=== PATIENT | male | born 1965 | race Caucasian/White ===

== ENCOUNTER 2019-01-26 18:03 | Emergency (ER) | payer MEDICAID, SELFPAY ==
[2019-01-26] VITALS (17 sets, daily range): BP systolic 153–170; BP diastolic 86–98; PULSE 64–78; RESP 18–32; O2SAT 80–99
--- NOTE | 2019-01-26 18:13 | DI.RAD_ITS ---
EXAM: XR ANKLE LT COMPLETE CLINICAL HISTORY: s/p fall off ladder,deformity, assess extent of fx TECHNIQUE: 2D digital imaging was performed. COMPARISON: No exams were available for comparison FINDINGS: BONES: There is a comminuted fracture involving the calcaneus. The fracture involves both the anteri or and posterior aspect of the calcaneus. There is loss of the normal Boehler's angle. The fracture appears to involve the subtalar joint and the posterior talocalcaneal joint. No other fracture is i dentified. No bony destructive lesion is seen. JOINTS:The ankle mortise is normally aligned. SOFT TISSUE: There is marked soft tissue swelling about the ankle and hindfoot. IMPRESSION: Markedly comminuted fracture involving the left calcaneus as described above. CT scan of the heel sh ould be considered for further characterization. Complete
--- NOTE | 2019-01-26 18:13 | DI.RAD_ITS ---
EXAM: XR WRIST RT COMPLETE CLINICAL HISTORY: s/p fall, r/o acute fracture. TECHNIQUE: 2D digital imaging was performed. COMPARISON: No exams were available for comparison FINDINGS: BONES: There is a comminuted fracture of the distal pole of the scaphoid. There is mild displacement of the radial aspect of the fracture. No other fracture location is identified. JOINTS: The carpal bones are normally aligned. SOFT TISSUE: There is soft tissue swelling about the wrist. IMPRESSION: Comminuted mildly displaced fracture of the distal scaphoid.
--- NOTE | 2019-01-26 18:13 | DI.CT_ITS ---
EXAM: CT HEAD CERV SPINE FACIAL WO CLINICAL HISTORY: s/p fall onto face, hematoma L cheek. TECHNIQUE: Multiple contiguous axial images of the head face and cervical spine were obtained. COMPARISON: No exams were available for comparison FINDINGS: There is normal lin-white matter differentiation. No acute intracranial hemorrhage is present. The re is no acute midline shift or mass effect. There is no evidence of a calvarial fracture. The mast oid air cells are well pneumatized. Mucous retention cysts or polyps are seen in the maxillary sinus es bilaterally. Remaining visualized paranasal sinuses are clear. There is soft tissue material see n in the external auditory canals bilaterally likely cerumen. There is no evidence of a facial fracture. Orbits and retro-orbital soft tissues are unremarkable. There is a hematoma overlying the left maxillary bone. There is mild left periorbital soft tissue sw elling. No acute fracture or subluxation is seen in the cervical spine. There reversal of the normal cervica l lordosis which appears chronic. There degenerative changes within the cervical spine. There is no prevertebral soft tissue swelling. IMPRESSION: No acute intracranial process. No evidence of a facial fracture. No acute fracture or subluxation is seen in the cervical spine. Complete
--- NOTE | 2019-01-26 18:16 | ED.GENADUL_ITS ---
Discharge Plan Disposition Patient Disposition: [facility] Condition: Stable Discharge Details Chief Complaint: Trauma Clinical Impression: Calcaneus fracture, left, Fracture of scaphoid bone of right wrist, Compression fx, lumbar spine, Central stenosis of spinal canal, Traumatic hematoma of face, Facial laceration Primary Care Provider: Elly Reese ED Provider: Marie Benitez Discharge Data Discharge Date/Time-TO BE ENTERED AT DEPARTURE: 01/26/19 20:57 Medical Decision Making 53-year-old male with history of hep C and hypertension presents after fall down 12 feet off a ladder onto his left foot and left facial cheek. Also hit his right wrist. No LOC. No complaint of chest or abdominal pain. He has a left facial hematoma and left upper face/temporal laceration without extension into the eye. He has a left ankle/calcaneus bony deformity but no open wound. He has right wrist scaphoid tenderness but no open deformity. Lungs clear to auscultation. Abdomen soft nontender. No tenderness to midline C/T/L-spine. Moving both arms and right leg. Bilateral upper extremities and lower extremities distal pulses intact. Unknown tetanus status. Will give a Boostrix. Will send for CT head/facial/c ervical spine/chest/abdomen/pelvis/thoracic and lumbar spine. Labs reviewed and unremarkable. Troponin negative. Lipase mildly elevated at 487. CT imaging notes a left facial hematoma but no evidence of skull or cervical fracture. Chest and abdominal imaging negative. No thoracic fracture noted. There is an L4 vertebral body compression fracture with anterior epidural hematoma which produces mild central canal stenosis. A left foot x-ray noted a comminuted and questionable dislocated calcaneus fracture. A CT of the left foot confirmed a comminuted calcaneus fracture which was reviewed with Dr. Toro. A right wrist x-ray noted a distal pole scaphoid fracture. Case discussed with Ortho on-call Dr. Toro - would recommend transfer to [facility] for further management due to possibly needing neurosurgery for monitoring of lumbar epidural hematoma. Recommends a bulky Masters padded splint to the left lower extremity as well as a Velcro right thumb spica splint. Family members now in room he states that patient possibly fell 70 feet from top of barn. Patient and EMS had initially stated fall was from 12 feet. 2004 --discussed with trauma Dr. Maravilla - who accepts pt for transfer to the ED as a trauma alert. She is in agreement with planned splints at this time. Medical Records Medical records reviewed: Yes I reviewed the patient's medical records. Imaging Data Radiologic Study: Radiologist's impression: XR WRIST RT COMPLETE CLINICAL HISTORY: s/p fall, r/o acute fracture. TECHNIQUE: 2D digital imaging was performed. COMPARISON: No exams were available for comparison FINDINGS: BONES: There is a comminuted fracture of the distal pole of the scaphoid. There is mild displacement of the radial aspect of the fracture. No other fracture location is identified. JOINTS: The carpal bones are normally aligned. SOFT TISSUE: There is soft tissue swelling about the wrist. IMPRESSION: Comminuted mildly displaced fracture of the distal scaphoid. XR ankle LT complete EXAM: XR ANKLE LT COMPLETE CLINICAL HISTORY: s/p fall off ladder,deformity, assess extent of fx TECHNIQUE: 2D digital imaging was performed. COMPARISON: No exams were available for comparison FINDINGS: BONES: There is a comminuted fracture involving the calcaneus. The fracture involves both the anterior and posterior aspect of the calcaneus. There is loss of the normal Boehler's angle. The fracture appears to involve the subtalar joint and the posterior talocalcaneal joint. No other fracture is identified. No bony destructive lesion is seen. JOINTS:The ankle mortise is normally aligned. SOFT TISSUE: There is marked soft tissue swelling about the ankle and hindfoot. IMPRESSION: Markedly comminuted fracture involving the left calcaneus as described above. CT scan of the heel should be considered for further characterization. CT thoracic & lumbar spine wo EXAM: CT CHEST/ABD/PEL W CLINICAL HISTORY: s/p fall off ladder down 12 ft. TECHNIQUE: Imaging Protocol: Axial computed tomography images with coronal and sagittal reformatted images were created and reviewed. Computed tomographic images of the thoracic and lumbar spine without contrast were created and reviewed. CONTRAST MATERIAL: Intravenous: Omnipaque 350 Contrast volume:100 mL contrast route:IV - Oral: No COMPARISON: No exams were available for comparison FINDINGS: CHEST: Tracheobronchial tree: Patent where visualized. Mediastinum and Sveta: No dominant adenopathy or fluid collection. Pulmonary parenchyma: There are dependent atelectatic changes in the lungs. Bilateral apical blebs are present. Heart: No cardiomegaly. No pericardial effusion. Pleura: No effusion or pneumothorax. Aorta: No evidence of thoracic aortic dissection or aneurysm. Bones: No acute fracture or subluxation is seen in the thoracic spine. There is a T5 round whole-body lesion present. ABDOMEN: Liver: The liver has a nodular appearance within the enlarged left lobe consistent with hepatic cirrhosis. No hepatic mass or laceration is present. The portal, superior mesenteric, and splenic veins are patent. Gallbladder and biliary tract: No radiodense calculus or dilation. Pancreas: Normal density, no abnormal calcifications or inflammatory process. Spleen: Normal. Kidneys: Normal size, contour and axis. There is a 2 mm nonobstructing stone in the lower pole of the left kidney. No solid renal mass or laceration is present. No evidence of obstructive uropathy is present. Adrenal glands: No masses seen. Aorta: There is atherosclerosis of the abdominal aorta. No evidence of abdominal aortic aneurysm. There are mildly enlarged lymph nodes seen in the a bdomen. Varices are seen in the upper abdomen. PELVIS: Bladder: The urinary bladder is intact. The reproductive organs are unremarkable. Bowel: No obstruction or bowel wall thickening. There is a normal retrocecal appendix. Peritoneal cavity: No ascites, collection or mesenteric inflammatory response. Bones: There is an acute mild fracture of the L4 vertebral body. Shows mild compression. There is an associated small anterior epidural hematoma measuring approximately 4.5 mm. It does produce mild of the central spinal canal. There is posterior fusion at L5-S1 IMPRESSION: 1. Acute mild compression of the L4 vertebral body. Associated small anterior epidural hematoma produces mild central spinal stenosis. 2. No evidence of abdominal or pelvic organ injury. 3. No acute pulmonary process. 4. T5 vertebral body lesion. This may represent a benign lesion such as a hemangioma. Further evaluation with MRI or bone scan is recommended. 5. Findings consistent with cirrhotic liver. CT head cerv spine & facial wo EXAM: CT HEAD CERV SPINE FACIAL WO CLINICAL HISTORY: s/p fall onto face, hematoma L cheek. TECHNIQUE: Multiple contiguous axial images of the head face and cervical spine were obtained. COMPARISON: No exams were available for comparison FINDINGS: There is normal lin-white matter differentiation. No acute intracranial hemorrhage is present. There is no acute midline shift or mass effect. There is no evidence of a calvarial fracture. The mastoid air cells are well pneumatized. Mucous retention cysts or polyps are seen in the maxillary sinuses bilaterally. Remaining visualized paranasal sinuses are clear. There is soft t issue material seen in the external auditory canals bilaterally likely cerumen. There is no evidence of a facial fracture. Orbits and retro-orbital soft tissues are unremarkable. There is a hematoma overlying the left maxillary bone. There is mild left periorbital soft tissue swelling. No acute fracture or subluxation is seen in the cervical spine. There reversal of the normal cervical lordosis which appears chronic. There degenerative changes within the cervical spine. There is no prevertebral soft tissue swelling. IMPRESSION: No acute intracranial process. No evidence of a facial fracture. No acute fracture or subluxation is seen in the cervical spine. CT chest/abd/pel w EXAM: CT CHEST/ABD/PEL W CLINICAL HISTORY: s/p fall off ladder down 12 ft. TECHNIQUE: Imaging Protocol: Axial computed tomography images with coronal and sagittal reformatted images were created and reviewed. Computed tomographic images of the thoracic and lumbar spine without contrast were created and reviewed. CONTRAST MATERIAL: Intravenous: Omnipaque 350 Contrast volume:100 mL contrast route:IV - Oral: No COMPARISON: No exams were available for comparison FINDINGS: CHEST: Tracheobronchial tree: Patent where visualized. Mediastinum and Sveta: No dominant adenopathy or fluid collection. Pulmonary parenchyma: There are dependent atelectatic changes in the lungs. Bilateral apical blebs are present. Heart: No cardiomegaly. No pericardial effusion. Pleura: No effusion or pneumothorax. Aorta: No evidence of thoracic aortic dissection or aneurysm. Bones: No acute fracture or subluxation is seen in the thoracic spine. There is a T5 round whole-body lesion present. ABDOMEN: Liver: The liver has a nodular appearance within the enlarged left lobe consistent with hepatic cirrhosis. No hepatic mass or laceration is present. The portal, superior mesenteric, and splenic veins are patent. Gallbladder and biliary tract: No radiodense calculus or dilation. Pancreas: Normal density, no abnormal calcifications or inflammatory process. Spleen: Normal. Kidneys: Normal size, contour and axis. There is a 2 mm nonobstructing stone in the lower pole of the left kidney. No solid renal mass or laceration is present. No evidence of obstructive uropathy is present. Adrenal glands: No masses seen. Aorta: There is atherosclerosis of the abdominal aorta. No evidence of abdominal aortic aneurysm. There are mildly enlarged lymph nodes seen in the abdomen. Varices are seen in the upper abdomen. PELVIS: Bladder: The urinary bladder is intact. The reproductive organs are unremarkable. Bowel: No obstruction or bowel wall thickening. There is a normal retrocecal appendix. Peritoneal cavity: No ascites, collection or mesenteric inflammatory response. Bones: There is an acute mild fracture of the L4 vertebral body. Shows mild compression. There is an associated small anterior epidural hematoma measuring approximately 4.5 mm. It does produce mild of the central spinal canal. There is posterior fusion at L5-S1 IMPRESSION: 1. Acute mild compression of the L4 vertebral body. Associated small anterior epidural hematoma produces mild central spinal stenosis. 2. No evidence of abdominal or pelvic organ injury. 3. No acute pulmonary process. 4. T5 vertebral body lesion. This may represent a benign lesion such as a hemangioma. Further evaluation with MRI or bone scan is recommended. 5. Findings consistent with cirrhotic liver. CT LOWER EXTREMITY LT WO CLINICAL HISTORY: s/p fall off ladder, assess extent of fx. TECHNIQUE: Multiple contiguous axial images through the hindfoot were performed. Sagittal and coronal reformatted images were performed. COMPARISON: XR ANKLE LT COMPLETE from 01/26/2019 FINDINGS: There is a markedly comminuted fracture involving the entire calcaneus. There is depression of the central portion of the calcaneus. This affects the subtalar joint and the posterior talocalcaneal joint. The fracture extends into the calcaneocuboid joint. There is marked soft tissue swelling about the hindfoot. There does appear to be a large hematoma medially measuring approximately 6 cm x 2 cm x 10 cm. IMPRESSION: Markedly comminuted fracture involving the calcaneus as described above. Lab Data Lab results reviewed: Yes I reviewed the patient's lab results. Labs: Laboratory Tests Range/Units 01/26/19 01/26/19 18:10 18:10 WBC (4.4-10.8) k/cumm 7.77 RBC (4.50-6.00) m/cumm 4.65 Hgb (13.5-17.5) g/dL 15.3 Hct (40.0-50.0) % 43.7 MCV (80-95) fL 94.0 MCH (27.0-33.0) pg 32.9 MCHC (32.0-36.0) g/dL 35.0 RDW (11.8-14.1) % 13.0 Plt Count (130-400) x1000/uL 154 MPV (8.0-11.0) fL 10.7 Immature Gran % 0.6 Neutrophils % 56.4 Lymphocytes % 28.6 Monocytes % 11.8 Eosinophils % 2.2 Basophils % 0.4 Absolute Neutrophils (1.2-6.7) k/cumm 4.38 Absolute Lymphocytes (1.2-3.4) k/cumm 2.22 Absolute Monocytes (0.11-0.7) k/cumm 0.92 H Absolute Eosinophils (0.0-0.7) k/cumm 0.17 Absolute Basophils (0.0-0.2) k/cumm 0.03 Sodium (136-145) mmol/L 140 Potassium (3.5-5.1) mmol/L 3.9 Chloride (98-107) mmol/L 103 Carbon Dioxide (21.0-32.0) mmol/L 26.2 Anion Gap (3-11) mmol/L 10.8 BUN (7-18) mg/dL 13 Creatinine (0.70-1.30) mg/dL 1.16 Estimated GFR/1.73 m2 (mL/min/1.73m2) >= 60.00 Glucose (70-100) mg/dL 105 H Calcium (8.5-10.1) mg/dL 8.9 Magnesium (1.8-2.4) mg/dL 1.9 Total Bilirubin (0.2-1.0) mg/dL 0.9 AST (15-37) U/L 72 H ALT (16-63) U/L 144 H Alkaline Phosphatase (46-116) U/L 79 Troponin I (0.00-0.06) ng/mL < 0.05 Total Protein (6.4-8.2) g/dL 8.1 Albumin (3.4-5.0) g/dL 4.3 Lipase (73-393) U/L 487 H HPI General Mode of arrival: EMS . Date/Time Provider Initiated Documentation: 01/26/19 18:13 . Limitations to Documentation: no limitations . Information obtained by: patient . HPI Narrative: Patient is a 53-year-old male with a history of hypertension and hep C who presents with left foot and ankle pain, right wrist pain and left facial injury after fall down 12 feet from a ladder just prior to arrival. Patient denies any alcohol or drug use. No report of LOC. Patient denies any neck pain, back pain, chest or abdominal pain. He was given 300 mcg of fentanyl in route without relief. Related Data Allergies Allergy/AdvReac Type Severity Reaction Status Date / Time No Known Allergies Allergy Unverified 01/26/19 18:05 General Stated Complaint: Trauma JOSE R: 2 Review of Systems Review of Systems ROS Unobtainable: All systems reviewed & are unremarkable except as noted in HPI and below Constitutional Constitutional: Reports as per HPI, Denies chills and Denies fever(s) Eyes Eyes: Denies blurry vision ENT Ears, Nose, Mouth, and Throat: Denies dizziness, Denies sore throat and Denies throat swelling Cardiovascular Cardiovascular: Denies chest pain and Denies dyspnea Respiratory Respiratory: Denies cough and Denies dyspnea Gastrointestinal Gastrointestinal: Denies abdominal pain, Denies diarrhea and Denies vomiting Genitourinary Genitourinary: Denies hematuria and Denies dysuria Musculoskeletal Musculoskeletal: Denies back pain and Denies numbness Comments: L foot/ankle pain. R wrist pain Integumentary/Breasts Skin/Breast: Denies lesions and Denies rash Neurologic Neurologic: Denies dizziness, Denies focal weakness and Denies numbness Allergic/Immunologic Allergic/Immunologic: Denies throat swelling [facility] Medical History Back pain with history of spinal surgery (Acute) Cervical spine fracture (Acute) Hypercholesteremia (Acute) Hypertension (Chronic) Migraine (Chronic) Social History Smoking/Tobacco Use Status: Current every day Tobacco Type: cigarettes Alcohol Intake: current Alcohol Intake frequency: holidays/special occasions only Substance use type: does not use Do you feel safe at home: Yes Do you feel safe in your relationship?: Yes Exam Const General: cooperative and healthy appearing Orientation: alert and awake [facility] Head: normal to inspection Ears: hearing grossly normal bilaterally, external ears normal and TM's normal bilaterally General nose exam: external nose normal Face images: 1. 2 cm laceration upper left facial cheek. 2. Moderate L facial hematoma. Mouth: oral mucosae normal Teeth and gingiva: dentures Throat: posterior oropharynx normal Eyes General: appearance normal, both eyes and all related structures Eyelids: eyelids normal Pupils: PERRL EOM: EOM intact bilaterally Neck Neck: normal visual inspection Lymphatic: no lymphadenopathy noted Chest Chest: normal inspection of the chest, normal palpation of entire chest wall and no tenderness Resp Effort & Inspection: normal respiratory effort and able to speak in complete sentences Auscultation: clear to auscultation bilaterally Cardio Rate: regular rate Rhythm: regular rhythm GI Inspection: normal to inspection Palpation: soft, not firm, no guarding, no hepatosplenomegaly, no masses and nontender Auscultation: normal bowel sounds Back/Spine/Pelvis Back: no CVA tenderness Cervical Spine: No cervical spinal tenderness Thoracic/Lumbar Spine: No thoracic spinal tenderness and No lumbar spinal tenderness Pelvis: no pain with anterior-posterior compression and no pain with lateral compression Skin General skin exam: no rashes or lesions noted Neuro General: alert and awake Cognition: normal cognition Speech: speech normal Gait: normal gait Motor: muscle tone normal throughout Sensory Exam: no sensory deficits noted Extrem Other: Tenderness to palpation R dorsal wrist and R scaphoid. No R wrist deformity. B/l radial pulses intact. L foot/ankle bony deformity. B/L DP/PT pulses intact. No tenderness to palpation b/l knees, right ankle foot, left upper extremity, right shoulder or elbow. Psych Appearance: grossly normal Mental Status: mental status grossly normal Speech and Movement: speech and movement normal Affect: normal affect Thought Process: normal Course Vital Signs Vital signs: Vital Signs Pulse 66 01/26/19 18:03 Respiratory Rate 18 01/26/19 18:03 Pulse 66 01/26/19 18:03 Respiratory Rate 18 01/26/19 18:03 Respiratory Effort 01/26/19 18:11 Comment 01/26/19 18:03
[2019-01-26 18:25] LABS: Abs Immature Grans 0.05 k/cumm (0.0-0.09); Absolute Basophil Count 0.03 k/cumm (0.0-0.2); Absolute Eosinophil Count 0.17 k/cumm (0.0-0.7); Absolute Lymphocyte Count 2.22 k/cumm (1.2-3.4); Absolute Monocyte Count 0.92 k/cumm (0.11-0.7); Absolute Neutrophil Count 4.38 k/cumm (1.2-6.7); Basophils % 0.4; Eosinophils % 2.2; HCT 43.7 % (40.0-50.0); HGB 15.3 g/dL (13.5-17.5); Immature Grans % 0.6; Lymphocytes % 28.6; Mean Corpuscular Hemoglobin 32.9 pg (27.0-33.0); Mean Platelet Volume 10.7 fL (8.0-11.0); Monocytes % 11.8; Neutrophils % 56.4; Platelet Count 154 x1000/uL (130-400); RBC 4.65 m/cumm (4.50-6.00); White Blood Cell Count 7.77 k/cumm (4.4-10.8)
[2019-01-26 18:42] LABS: ALT 144 U/L (16-63); AST 72 U/L (15-37); Albumin 4.3 g/dL (3.4-5.0); Alkaline Phosphatase 79 U/L (46-116); Anion Gap 10.8 mmol/L (3-11); BUN 13 mg/dL (7-18); Bilirubin, Total 0.9 mg/dL (0.2-1.0); CO2 26.2 mmol/L (21.0-32.0); CREATININE 1.16 mg/dL (0.70-1.30); Calcium 8.9 mg/dL (8.5-10.1); Chloride 103 mmol/L (98-107); Glucose 105 mg/dL (70-100); Lipase 487 U/L (73-393); Magnesium 1.9 mg/dL (1.8-2.4); Potassium 3.9 mmol/L (3.5-5.1); Sodium 140 mmol/L (136-145); Total Protein 8.1 g/dL (6.4-8.2); Troponin I < 0.05 ng/mL (0.00-0.06)
[2019-01-26] MEDS: Normal Saline Flush 10 ML SYR IVP (19:11)
[2019-01-26] MEDS: Omnipaque 350 MG/ML 100 ML BTL IJ (19:11)
--- NOTE | 2019-01-26 19:12 | DI.CT_ITS ---
EXAM: CT CHEST/ABD/PEL W CLINICAL HISTORY: s/p fall off ladder down 12 ft. TECHNIQUE: Imaging Protocol: Axial computed tomography images with coronal and sagittal reformatted images were created and reviewed. Computed tomographic images of the thoracic and lumbar spine witho ut contrast were created and reviewed. CONTRAST MATERIAL: Intravenous: Omnipaque 350 Contrast volume:100 mL contrast route:IV - Oral: No COMPARISON: No exams were available for comparison FINDINGS: CHEST: Tracheobronchial tree: Patent where visualized. Mediastinum and Sveta: No dominant adenopathy or fluid collection. Pulmonary parenchyma: There are dependent atelectatic changes in the lungs. Bilateral apical blebs a re present. Heart: No cardiomegaly. No pericardial effusion. Pleura: No effusion or pneumothorax. Aorta: No evidence of thoracic aortic dissection or aneurysm. Bones: No acute fracture or subluxation is seen in the thoracic spine. There is a T5 round whole-bod y lesion present. ABDOMEN: Liver: The liver has a nodular appearance within the enlarged left lobe consistent with hepatic cirrh osis. No hepatic mass or laceration is present. The portal, superior mesenteric, and splenic veins are patent. Gallbladder and biliary tract: No radiodense calculus or dilation. Pancreas: Normal density, no abnormal calcifications or inflammatory process. Spleen: Normal. Kidneys: Normal size, contour and axis. There is a 2 mm nonobstructing stone in the lower pole of the left kidney. No solid renal mass or laceration is present. No evidence of obstructive uropathy is present. Adrenal glands: No masses seen. Aorta: There is atherosclerosis of the abdominal aorta. No evidence of abdominal aortic aneurysm. T here are mildly enlarged lymph nodes seen in the abdomen. Varices are seen in the upper abdomen. PELVIS: Bladder: The urinary bladder is intact. The reproductive organs are unremarkable. Bowel: No obstruction or bowel wall thickening. There is a normal retrocecal appendix. Peritoneal cavity: No ascites, collection or mesenteric inflammatory response. Bones: There is an acute mild fracture of the L4 vertebral body. Shows mild compression. There is a n associated small anterior epidural hematoma measuring approximately 4.5 mm. It does produce mild o f the central spinal canal. There is posterior fusion at L5-S1 IMPRESSION: 1. Acute mild compression of the L4 vertebral body. Associated small anterior epidural hematoma pro duces mild central spinal stenosis. 2. No evidence of abdominal or pelvic organ injury. 3. No acute pulmonary process. 4. T5 vertebral body lesion. This may represent a benign lesion such as a hemangioma. Further evalu ation with MRI or bone scan is recommended. 5. Findings consistent with cirrhotic liver. DATA REPOSITORY: All CT scans at this facility are submitted to the National Radiology Data Registry (NRDR) Dose Index Registry (DIR) with the [employer] (A[employer]). RADIATION OPTIMIZATION: All CT scans at this facility use at least one of these dose optimization te chniques: automated exposure control; mA and/or kV adjustment per patient size (includes targeted exa ms where dose is matched to clinical indication); or iterative reconstruction.
--- NOTE | 2019-01-26 19:18 | DI.VRAD_ITS ---
PROCEDURE INFORMATION: Exam: XR Left Ankle Exam date and time: 01/26/2019 6:54 PM Clinical history: 53 years old, male; Pain; Swelling or effusion of joint; Ankle; Left; Patient HX: S/P fall off ladder, deformity; Additional info: Assess extent of FX TECHNIQUE: Imaging protocol: XR Left ankle. Views: 3 or more views. COMPARISON: No relevant prior studies available. FINDINGS: Bones/joints: The ankle mortise is slightly widened laterally compared to medially. There is prominent for many of the mid and anterior calcaneus. The tail S. appears to have dislocated anteriorly with respect to the calcaneus. There is no identifiable fracture of the distal fibula tibia or navicular. There is no obvious fracture of the tail as itself. Soft tissues: Severe diffuse swelling at the ankle and adjacent hindfoot. There is no radiopaque foreign body.There is no gas in the soft tissue. IMPRESSION: Unusual dislocation at the subtalar joint associated with what appears to be a comminuted fracture of the anterior and mid calcaneus. CT of the ankle is suggested to to evaluate the deformity further. Dictated and Authenticated by: Nikko Cruz MD. Ordering:CHRISTO Salazar MD
--- NOTE | 2019-01-26 19:20 | DI.CT_ITS ---
EXAM: CT LOWER EXTREMITY LT WO CLINICAL HISTORY: s/p fall off ladder, assess extent of fx. TECHNIQUE: Multiple contiguous axial images through the hindfoot were performed. Sagittal and coron al reformatted images were performed. COMPARISON: XR ANKLE LT COMPLETE from 01/26/2019 FINDINGS: There is a markedly comminuted fracture involving the entire calcaneus. There is depression of the c entral portion of the calcaneus. This affects the subtalar joint and the posterior talocalcaneal yusuf nt. The fracture extends into the calcaneocuboid joint. There is marked soft tissue swelling about the hindfoot. There does appear to be a large hematoma me dially measuring approximately 6 cm x 2 cm x 10 cm. IMPRESSION: Markedly comminuted fracture involving the calcaneus as described above.
--- NOTE | 2019-01-26 19:21 | DI.VRAD_ITS ---
PROCEDURE INFORMATION: Exam: XR Right Wrist Exam date and time: 01/26/2019 6:54 PM Clinical history: 53 years old, male; Pain; Wrist; Right; Patient HX: S/P fall; Additional info: R/O acute fracture TECHNIQUE: Imaging protocol: XR Right wrist. Views: 3 or more views. COMPARISON: No relevant prior studies available. FINDINGS: Bones/joints: There is a 8 x 5 x 7 mm fracture fragment minimally displaced from the radial aspect of the distal scaphoid. Fracture appears to be comminuted with cortical irregularity of the distal scaphoid as well. No other fractures demonstrated. Soft tissues: There is no radiopaque foreign body.There is no gas in the soft tissue. IMPRESSION: Acute comminuted fracture of the distal scaphoid. Dictated and Authenticated by: Nikko Cruz MD. Ordering:CHRISTO Salazar MD
--- NOTE | 2019-01-26 19:24 | DI.VRAD_ITS ---
PROCEDURE INFORMATION: Exam: CT Head Without Contrast Exam date and time: 01/26/2019 6:26 PM Clinical history: 53 years old, male; Other: S/P fall off ladder down 12 ft; Other: S/P fall onto face, hematoma L cheek; Other: S/P fall onto face, hematoma L cheek TECHNIQUE: Imaging protocol: Computed tomography of the head without contrast. Radiation optimization: All CT scans at this facility use at least one of these dose optimization techniques: automated exposure control; mA and/or kV adjustment per patient size (includes targeted exams where dose is matched to clinical indication); or iterative reconstruction. COMPARISON: No relevant prior studies available. FINDINGS: Brain: Unremarkable. No hemorrhage. No significant white matter disease. No edema. Ventricles: Unremarkable. No hydrocephalus. Bones/joints: Unremarkable. No acute fracture. Sinuses: Mucous retention cysts or polyps in the maxillary sinuses. Minimal opacification scattered in the paranasal sinuses. No air-fluid levels. Mastoid air cells: Unremarkable as visualized. No mastoid effusion. Auditory system: Filling defects in both external auditory canals without associated fracture, bony erosion or periosteal reaction likely represents cerumen. Soft tissues: Left periorbital subcutaneous contusion. IMPRESSION: Negative for skull fracture or acute intracranial pathology. PROCEDURE INFORMATION: Exam: CT Maxillofacial Without Contrast Exam date and time: 01/26/2019 6:26 PM Clinical history: 53 years old, male; Other: S/P fall off ladder down 12 ft; Other: S/P fall onto face, hematoma L cheek; Other: S/P fall onto face, hematoma L cheek TECHNIQUE: Imaging protocol: Computed tomography images of the face without contrast. Radiation optimization: All CT scans at this facility use at least one of these dose optimization techniques: automated exposure control; mA and/or kV adjustment per patient size (includes targeted exams where dose is matched to clinical indication); or iterative reconstruction. COMPARISON: No relevant prior studies available. FINDINGS: Orbits: Globes, extraocular muscles and optic nerves are normal in size, shape and position. No retro-bulbar hematoma or mass. Sinuses: Mucous retention cysts or polyps in the maxillary sinuses. Minimal opacification scattered in the paranasal sinuses. No air-fluid levels. Bones/joints: Orbital grace, maxillary grace, zygomas, pterygoid plates, nasal bones, mandible and skull base are intact. Dental: Patient is edentulous. Soft tissues: Subcutaneous contusion and hematoma overlies the left maxilla. Left periorbital subcutaneous contusion. IMPRESSION: 1. Left facial subcutaneous hematoma and contusions. 2. No fracture or dislocation. PROCEDURE INFORMATION: Exam: CT Cervical Spine Without Contrast Exam date and time: 01/26/2019 6:26 PM Clinical history: 53 years old, male; Other: S/P fall off ladder down 12 ft; Other: S/P fall onto face, hematoma L cheek; Other: S/P fall onto face, hematoma L cheek TECHNIQUE: Imaging protocol: Computed tomography images of the cervical spine without contrast. Radiation optimization: All CT scans at this facility use at least one of these dose optimization techniques: automated exposure control; mA and/or kV adjustment per patient size (includes targeted exams where dose is matched to clinical indication); or iterative reconstruction. COMPARISON: No relevant prior studies available. FINDINGS: Vertebrae: No fracture or subluxation/dislocation. There is a smooth reversal of the normal cervical lordosis. Discs/Spinal canal/Neural foramina: C5-6 degenerative disc disease with endplate disc bulges, annular disc bulge, uncovertebral spurring and facet hypertrophy which produces moderate central canal stenosis. Soft tissues: Unremarkable. Lungs: No apical pneumothorax. Biapical scarring and bleb formation. IMPRESSION: 1. No fracture or dislocation. 2. Reversal of the normal cervical lordosis may be due to one or combination of: Positioning, muscle spasm and degenerative changes. 3. C5-6 degenerative changes produce moderate central canal stenosis. Dictated and Authenticated by: Marquita Hernandez MD. Ordering:CHRISTO Salazar MD
--- NOTE | 2019-01-26 19:42 | NUR.NOTE ---
1830- pt to ct with this at bedside to stabalize c spine Nursing Note:
--- NOTE | 2019-01-26 19:42 | NUR.NOTE ---
pt in room c collor remains in place vs on threat monitoring analyst family at bedside will cont to monitor pt Nursing Note:
[2019-01-26] MEDS: HYDROmorphone 2 MG/ML VIAL 1 MG IVP (19:59)
--- NOTE | 2019-01-26 19:59 | DI.VRAD_ITS ---
PROCEDURE INFORMATION: Exam: CT Thoracic Spine Without Contrast Exam date and time: 01/26/2019 7:04 PM Clinical history: 53 years old, male; Other: S/P fall off ladder, R/O acute fracture; Other: S/P fall off ladder, f/o acute fracture TECHNIQUE: Imaging protocol: Computed tomography images of the thoracic spine without contrast. Radiation optimization: All CT scans at this facility use at least one of these dose optimization techniques: automated exposure control; mA and/or kV adjustment per patient size (includes targeted exams where dose is matched to clinical indication); or iterative reconstruction. COMPARISON: No relevant prior studies available. FINDINGS: Vertebrae: No fracture or dislocation. T5 vertebral body lesion with thickened trabecula, typical of a benign hemangioma. Discs/Spinal canal/Neural foramina: Multilevel degenerative disc disease, but no spinal stenosis. Soft tissues: Unremarkable. IMPRESSION: 1. No thoracic fracture or dislocation. 2. T5 probable hemangioma. PROCEDURE INFORMATION: Exam: CT Lumbar Spine Without Contrast Exam date and time: 01/26/2019 7:04 PM Clinical history: 53 years old, male; Other: S/P fall off ladder, R/O acute fracture; Other: S/P fall off ladder, f/o acute fracture TECHNIQUE: Imaging protocol: Computed tomography images of the lumbar spine without contrast. Radiation optimization: All CT scans at this facility use at least one of these dose optimization techniques: automated exposure control; mA and/or kV adjustment per patient size (includes targeted exams where dose is matched to clinical indication); or iterative reconstruction. COMPARISON: No relevant prior studies available. FINDINGS: Vertebrae: Acute L4 vertebral body compression fracture with anterior cortical step-off and minimal loss vertebral body height. No posterior bony protrusion. Epidural space: Small epidural hematoma along the posterior wall of the L4 vertebral body measures 4.5 mm in AP dimension and mildly narrows the central canal. Discs/Spinal canal/Neural foramina: L4-5 annular disc bulge with endplate spurring, facet hypertrophy and ligamentum flavum thickening (all degenerative findings are prominent on the left) combine to produce moderate central canal stenosis, mild right neural foraminal stenosis and moderate left neural foraminal stenosis. L5-S1 posterior mechanical fusion with interpedicular screws and disc spacer. Surgical hardware is in appropriate position and shows no evidence of complications. Soft tissues: Unremarkable. IMPRESSION: 1. Acute mild L4 vertebral body compression fracture. 2. Anterior epidural hematoma at the L4 level produces mild central canal stenosis. Results discussed with Marie Morales at 01/26/2019 7:40 PM EDT. Dictated and Authenticated by: Marquita Hernandez MD. Ordering:CHRISTO Salazar MD
--- NOTE | 2019-01-26 20:11 | DI.VRAD_ITS ---
PROCEDURE INFORMATION: Exam: CT Chest With Contrast Exam date and time: 01/26/2019 6:36 PM Clinical history: 53 years old, male; Other: S/P fall off ladder down 12 ft; Additional info: R/O acute fracture TECHNIQUE: Imaging protocol: Computed tomography of the chest with intravenous contrast. Radiation optimization: All CT scans at this facility use at least one of these dose optimization techniques: automated exposure control; mA and/or kV adjustment per patient size (includes targeted exams where dose is matched to clinical indication); or iterative reconstruction. COMPARISON: No relevant prior studies available. FINDINGS: Lungs: Bilateral apical bleb formation. Mild dependent atelectasis. Pleural space: Unremarkable. No pneumothorax. No pleural effusion. Heart: Unremarkable. No cardiomegaly. No pericardial effusion. Aorta: Unremarkable. No aortic aneurysm, dissection or evidence of injury. Lymph nodes: Unremarkable. No enlarged lymph nodes. Bones/joints: No fracture or dislocation. T5 vertebral body probable hemangioma. Soft tissues: Unremarkable. IMPRESSION: Negative for acute thoracic pathology. PROCEDURE INFORMATION: Exam: CT Abdomen and Pelvis With Contrast Exam date and time: 01/26/2019 6:36 PM Clinical history: 53 years old, male; Other: S/P fall off ladder down 12 ft; Additional info: R/O acute fracture TECHNIQUE: Imaging protocol: Computed tomography of the abdomen and pelvis with intravenous contrast. Radiation optimization: All CT scans at this facility use at least one of these dose optimization techniques: automated exposure control; mA and/or kV adjustment per patient size (includes targeted exams where dose is matched to clinical indication); or iterative reconstruction. Contrast material: OMNIPAQUE 350; Contrast volume: 100 ml; Contrast route: IV; COMPARISON: No relevant prior studies available. FINDINGS: Liver: Cirrhotic liver. No mass. Gastric, splenic and retroperitoneal varices. Gallbladder and bile ducts: Unremarkable.No calcified stones. No ductal dilation. Pancreas: Pancreatic duct is upper normal in size. No visible obstructing stone or mass. Spleen: Unremarkable. No splenomegaly. Adrenals: Unremarkable. No mass. Kidneys and ureters: Unremarkable. No hydronephrosis. Stomach and bowel: Unremarkable. No obstruction. No mucosal thickening. Appendix: Normal appendix. Intraperitoneal space: No free air or free fluid. Vasculature: Mild aortoiliac wall calcifications. No aortic aneurysm, dissection or evidence of injury. Lymph nodes: Varices and small lymph nodes, as well as, nonspecific hazy attenuation of the retroperitoneal and central mesenteric fat. Bladder: Unremarkable as visualized. Reproductive: Unremarkable as visualized. Bones/joints: Acute mild L4 vertebral body compression fracture. Associated small anterior epidural hematoma produces mild central canal stenosis. Soft tissues: Unremarkable. IMPRESSION: 1. Acute mild L4 vertebral body compression fracture. Associated small anterior epidural hematoma produces mild central canal stenosis. 2. No evidence of internal injury. 3. Cirrhotic liver. No ascites. 4. Varices and small lymph nodes, as well as, nonspecific hazy attenuation of the retroperitoneal and central mesenteric fat. Results discussed with Marie Morales at 01/26/2019 7:40 PM EDT. Dictated and Authenticated by: Marquita Hernandez MD. Ordering:CHRISTO Salazar MD
--- NOTE | 2019-01-26 20:28 | DI.VRAD_ITS ---
PROCEDURE INFORMATION: Exam: CT Left Lower Extremity Without Contrast, Ankle Exam date and time: 01/26/2019 7:22 PM Clinical history: 53 years old, male; Injury or trauma; Initial encounter; Blunt trauma; Ankle and heel; Left; Patient HX: S/P fall off ladder; Additional info: Assess extent of fracture TECHNIQUE: Imaging protocol: CT of the Left lower extremity without contrast was performed. Exam focused on the ankle. COMPARISON: CR XR ANKLE LT COMPLETE 01/26/2019 6:47 PM FINDINGS: Bones/joints: Fracture involving all portions of the calcaneus with depression of the tuberosity fragment. The other tarsal bones and imaged portions of the distal tibia and fibula are intact. No ankle joint dislocation or significant effusion. Soft tissues: Subcutaneous edema and swelling surrounds the ankle and mid-posterior foot. Subcutaneous hematoma at the level of the ankle and midfoot. Hematoma measures approximately 6 cm x 2 cm x 10 cm in maximum AP, transverse and CC dimensions. IMPRESSION: 1. Acute comminuted intra-articular calcaneal fracture with joint depression. 2. Medial subcutaneous hematoma. Dictated and Authenticated by: Marquita Hernandez MD. Ordering:CHRISTO Salazar MD
== END 2019-01-26 20:57 | disposition short-term general hospital (02) ==
PROVIDERS: Emergency Provider Physician Assistant; PCP Internal Medicine
DX: S92.015A Nondisplaced fracture of body of left calcaneus, initial encounter for closed fracture (principal); S62.011A Displaced fracture of distal pole of navicular [scaphoid] bone of right wrist, initial encounter for closed fracture; S32.040A Wedge compression fracture of fourth lumbar vertebra, initial encounter for closed fracture; M48.062 Spinal stenosis, lumbar region with neurogenic claudication; S01.81XA Laceration without foreign body of other part of head, initial encounter; S00.83XA Contusion of other part of head, initial encounter; W11.XXXA Fall on and from ladder, initial encounter; I10 Essential (primary) hypertension
CPT/HCPCS: 36415; 74177; 80053; 83690; 90471; 96374; 99285; 70450; 70486; 71260; 72125; 72128; 72131; 73110; 73610; 73700; 83735; 84484; 85025; 99284; J3490; L3807